=== PATIENT | female | born 1950 | race Caucasian/White ===

== ENCOUNTER 2019-05-15 08:24 | Emergency (ER) | payer BC, OTHER ==
[~2019-05-15] VITALS: Ht 167.6 cm; Wt 99.8 kg
[2019-05-15 08:24] VITALS: BP_SYST 134
--- NOTE | 2019-05-15 08:24 | NUR ---
BROUGHT IN BY [facility], PLACED IN ROOM #6 AND TRIAGED. REPORT GIVEN TO TIANA
--- NOTE | 2019-05-15 08:29 | NUR ---
ER at bedside examining patient.
--- NOTE | 2019-05-15 08:30 | NUR ---
Pt bib BLS c/o LLE pain s/p mech fall. Pt has hematoma internal rotation.
--- NOTE | 2019-05-15 08:52 | NUR ---
Radiology at bedside for study
--- NOTE | 2019-05-15 09:10 | NUR ---
Pt tolerated splinting well.
--- NOTE | 2019-05-15 09:12 | NUR ---
Long leg posterior splint applied
[2019-05-15] MEDS ORDERED: KETOROLAC TROMETHAMINE 60 MG/2 ML VIAL IM ONE (09:30)
[2019-05-15 09:35] VITALS: BP_SYST 134
--- NOTE | 2019-05-15 09:35 | NUR ---
Patient given written and verbal discharge instructions and verbalizes understanding. ER MD discussed with patient the results and treatment provided. Patient in stable condition. ID arm band removed. Rx of shirleynorco given. Patient educated on pain management and to follow up with PMD. Pain Scale 3. Opportunity for questions provided and answered. Medication side effect fact sheet provided.
== END 2019-05-15 09:35 | disposition home or self-care (01) ==
LOC: SED 08:24
DX: S82.102A Unspecified fracture of upper end of left tibia, initial encounter for closed fracture (principal); S80.01XA Contusion of right knee, initial encounter; S40.012A Contusion of left shoulder, initial encounter; W01.0XXA Fall on same level from slipping, tripping and stumbling without subsequent striking against object, initial encounter; Y93.89 Activity, other specified; Y92.89 Other specified places as the place of occurrence of the external cause; Y99.8 Other external cause status
CPT/HCPCS: 29505; 73030; 73560; 96372; 99283; J1885